=== PATIENT | male | born 1950 | race Caucasian/White ===

== ENCOUNTER 2023-10-01 14:40 | Outpatient (REF) | payer MEDICARE, SELFPAY | END 2023-10-01 14:41 | disposition home or self-care (01) | LOC: HO.SH 14:40 | PROVIDERS: Visit Provider Physician Assistant Medical | DX: Z01.118 Encounter for examination of ears and hearing with other abnormal findings (principal); H90.3 Sensorineural hearing loss, bilateral | CPT/HCPCS: 92557; 92567 ==

== ENCOUNTER 2024-05-26 13:20 | Outpatient (AMB) | payer MEDICARE, SELFPAY ==
--- NOTE | 2024-05-26 13:31 | MHC.PC.OV ---
Vital Signs 05/26/24 13:44 Height 5 ft 10 in Weight 166 lb BMI 23.8 BP 144/64 H Blood Pressure Location Lt brachial Position Sitting Respiration 12 Pulse 82 Pulse Source Pulse Oximeter Pulse Oximetry (%) 99 Oxygen Delivery Method Room Air Intake Visit Reasons: Establish Care not a transfer Intake Note: Patient is here to establish care with [facility], patient reports he has no concerns at this time. 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 Accompanied by: Self / Same As Patient Allergies No Known Allergies Allergy (Verified 05/29/24 14:19) Medication List - Last Reconciled 05/26/24 by Dona Manzano MD mecobalamin (vitamin B12) 5,000 mcg PO DAILY minocycline 50 mg PO .week Tobacco use date assessed: 05/26/24 Fall risk assessment: No Falls in past year Last assessed Fall Risk: 05/26/24 Dental Screening Dental Screen Date: 05/26/24 Did you have a dental problem in the last 6 months where you did not have access to dental care?: No Was dental information given to patient?: Patient has dentist HPI HPI Comments History of Present Illness Details The patient is a 74 year old male with a past medical history of diabetes, low b12, presenting to establish [facility]. transferring from [facility]. Recent labs concerning for elevation in Cr In April of 2024 serum creatinine gradually increased from a baseline of 1.0 up to 1.4 and subsequently to 1.94 as of May 02. Denies new meds. No OTC meds. Diabetes has been well controlled No flank pain, pelvic pain, dysuria ROS see HPI PHYSICAL EXAM: GENERAL: Alert and oriented x 3. NAD EYES: EOMI. Anicteric. HENT: Moist mucous membranes. No scleral icterus. LUNGS: Clear to auscultation bilaterally. CARDIOVASCULAR: Regular rate and rhythm. No murmur. No JVD. ABDOMEN: Soft, non-tender +bs, no cva tenderness EXTREMITIES: No edema. Non-tender. SKIN: No rashes or lesions. Warm. NEUROLOGIC: No focal neurological deficits. CN II-XII grossly intact PSYCHIATRIC: Cooperative. Appropriate mood and affect [facility] Medical History No pertinent past medical history Surgical History No pertinent past surgical history Family History Other Lung cancer Social History Household Members: Spouse, Family and Children Housing: House Alcohol intake: current Alcohol intake frequency: holidays/special occasions only Alcohol type: beer Comment: like once per year Patient Tobacco Use Status: Never used Tobacco e-Cigarette/Vaping Use: Never Used Advance Directives: No Advance Directives Information Provided: Yes Do you have a plan to hurt others: No Plan service: No Current occupational status: retired Current occupational exposures/hazards: No Cognitive needs: No Hearing needs: No Vision needs: No Questionnaire PHQ-9 Over the last 2 weeks, how often have you been bothered by any of the following problems? 1. Little interest or pleasure in doing things: not at all 2. Feeling down, depressed, or hopeless: not at all 3. Trouble falling or staying asleep, or sleeping too much: not at all 4. Feeling tired or having little energy: not at all 5. Poor appetite or overeating: not at all 6. Feeling bad about yourself - or that you are a failure or have let yourself or your family down: not at all 7. Trouble concentrating on things, such as reading the newspaper or watching television: not at all 8. Moving or speaking so slowly that other people could have noticed. Or the opposite - being so fidgety or restless that you have been moving around a lot more than usual: not at all 9. Thoughts that you would be better off or of hurting yourself in some way: not at all Total score: 0 Depression Screening Interpretation: Negative Depression Screening Done: Yes 22636 - PHQ-9 Billing: Yes Source: Developed by Drs. Romel Blanco, Violeta Frankel, Chandler Lin and colleagues, with an educational lashaun from [employer] (formerly [employer]). Thrive Questionnaire Date Thrive assessed: 05/26/24 I am a: Patient What is your living situation today?: I have a steady place to live Within the past 12 months, did the food you bought not last and you didn't have the money to get more?: Never true Within the past 12 months, did you worry whether your food would run out before you got money to buy more?: Never true Do you have trouble paying for medicines?: No Do you have trouble getting transportation to medical appointments?: No Do you have trouble paying your heating and electricity bill?: No Do you have trouble taking care of your child, family member or friend?: No Do you have trouble with day-to-day activities such as bathing, preparing meals, shopping, managing finances, etc.?: No Are you currently unemployed and looking for a job?: No Are you interested in more education?: No Please select the resources that you would like help with: None Currently or been in a relationship where the following occur: No concerns reported THRIVE Score: 0 AUDIT C Alcohol Use Questionnaire (AUDIT-C) 1. How often do you have a drink containing alcohol?: Never 3. How often do you have six or more drinks on one occasion?: Never Total Score: 0 REMIGIO-7 AMB Questionnaire REMIGIO-7 Date REMIGIO - 7 assessed: 05/26/24 Feeling nervous, anxious, or on edge: 0 = Not at all Not being able to stop or control worryin = Not at all Worrying too much about different things: 0 = Not at all Trouble relaxin = Not at all Being so restless that it is hard to sit still: 0 = Not at all Becoming easily annoyed or irritable: 0 = Not at all Feeling afraid as if something awful might happen: 0 = Not at all Total REMIGIO-7 score (0-4 normal; 5-9 mild; 10-14 moderate; 15-21 severe): 0 Source: Developed by Drs. Romel Blanco, Violeta Frankel, Chandler Lin and colleagues, with an educational lashaun from [employer] (formerly [employer]). REMIGIO-7 Assessment Billing REMIGIO-7 Assessment Tool: REMIGIO-7 Assessment 06665 Physical exam (Primary Care) Vital Signs: Last Vital Signs Pulse 82 05/26/24 13:44 Resp 12 05/26/24 13:44 BP 144/64 H 05/26/24 13:44 Pulse Ox 99 05/26/24 13:44 Oxygen Delivery Method Room Air 05/26/24 13:44 BMI result Body Mass Index 23.8 Tobacco/Smoking Status: Tobacco use Status Tobacco use date assessed 05/26/24 05/26/24 13:58 Patient Tobacco Use Status Never used Tobacco 05/26/24 13:58 e-Cigarette/Vaping Use Never Used 05/26/24 13:58 PHQ-9: PHQ-9 Score PHQ-9: Total score 0 06/01/24 08:42 Depression Screening Interpretation: Negative Thrive Assessment: Date of Thrive Assessment Date Thrive assessed 05/26/24 05/26/24 13:58 Currently or been in a relationship where the following occur: No concerns reported Assessment and Plan Assessment & Plan (1) MYRON (acute kidney injury): Code(s): N17.9 - Acute kidney failure, unspecified Plan: Urgent referral to nephrology. Travelling soon for extended amount of time. Recheck labs, urine (2) Type 2 diabetes mellitus: Code(s): E11.9 - Type 2 diabetes mellitus without complications Qualifiers: Diabetes mellitus complication status: with other specified complication Diabetes mellitus terminal clerk insulin use: without terminal clerk use Qualified Code(s): E11.69 - Type 2 diabetes mellitus with other specified complication (3) Screening for prostate cancer: Code(s): Z12.5 - Encounter for screening for malignant neoplasm of prostate Orders: Orders Comprehensive Met. Panel 05/26/24 E11.9 - Type 2 diabetes mellitus without complications, N17.9 - Acute kidney failure, unspecified, Z12.5 - Encounter for screening for malignant neoplasm of prostate UA CC w/rflx Micro + Cult 05/26/24 E11.9 - Type 2 diabetes mellitus without complications, N17.9 - Acute kidney failure, unspecified, Z12.5 - Encounter for screening for malignant neoplasm of prostate Microalbumin, Random (w Creat) 05/26/24 E11.9 - Type 2 diabetes mellitus without complications, N17.9 - Acute kidney failure, unspecified, Z12.5 - Encounter for screening for malignant neoplasm of prostate Prostate Specific Antigen 05/26/24 Z12.5 - Encounter for screening for malignant neoplasm of prostate Referrals Nephrology Referral N17.9 - Acute kidney failure, unspecified Medications: New minocycline 50 mg PO .week PRN Coding Level of Care Code New Pt Level 4 (55604) Diagnoses MYRON (acute kidney injury) N17.9 Type 2 diabetes mellitus with other specified complication, without long-term current use of insulin E11.69 Diabetes mellitus complication status: with other specified complication Diabetes mellitus terminal clerk insulin use: without terminal clerk use Screening for prostate cancer Z12.5 Additional Codes REMIGIO-7 Assessment Billing - REMIGIO-7 Assessment Tool: REMIGIO-7 Assessment [id number] ([id number])
[2024-05-26 13:44] VITALS: BP 144/64; PULSE 82; RESP 12; O2SAT 99; BMI 23.8
== END 2024-05-26 14:29 | disposition home or self-care (01) ==
PROVIDERS: Visit Provider Internal Medicine
DX: N17.9 Acute kidney failure, unspecified (principal); E11.69 Type 2 diabetes mellitus with other specified complication; Z12.5 Encounter for screening for malignant neoplasm of prostate
CPT/HCPCS: 99204

== ENCOUNTER 2024-05-26 14:34 | Outpatient (REF) | payer MEDICARE, SELFPAY ==
[2024-05-26 17:42] LABS: Appearance Urine Clear; Color Urine Yellow; Glucose Urine UA Negative (Negative); Leukocyte Esterase Urine Negative (Negative); Nitrite Urine Negative (Negative); Urine Blood Negative (Negative); Urine Ketones Negative (Negative); Urine Protein Negative (Neg-Trace)
[2024-05-26 17:54] LABS: Alanine Aminotransferase 11 U/L (0-40); Albumin Level 4.4 g/dL (3.5-5.0); Alkaline Phosphatase 73 U/L (39-117); Anion Gap 13 (12-20); Aspartate Amino Transferase 34 U/L (5-37); Bilirubin Total 0.9 mg/dL (0.0-1.0); Blood Urea Nitrogen 27 mg/dL (9-16); Calcium 9.8 mg/dL (8.4-10.2); Carbon Dioxide 26 mmol/L (22-29); Chloride 106 mmol/L (96-108); Estimated Glomerular Filt Rate 35; Glucose Random 92 mg/dL (60-115); Potassium 4.5 mmol/L (3.3-5.1); Sodium 140 mmol/L (135-145); Total Protein 7.6 g/dL (6.5-8.0)
[2024-05-26 18:13] LABS: Creatinine Urine 46.23 mg/dL; Microalbum/Creatinine Ratio Ur 21.6 ug/mg cr (<30)
== END 2024-05-26 14:35 | disposition home or self-care (01) ==
LOC: HO.WFDLDS 14:34
PROVIDERS: Visit Provider Internal Medicine
DX: N17.9 Acute kidney failure, unspecified (principal); E11.9 Type 2 diabetes mellitus without complications; Z12.5 Encounter for screening for malignant neoplasm of prostate
CPT/HCPCS: 36415; 80053; 81003; 82043; 82570; 84153

== ENCOUNTER 2024-05-28 15:10 | Outpatient (REF) | payer MEDICARE, SELFPAY ==
[2024-05-28 18:13] LABS: Appearance Urine Clear; Color Urine Yellow; Glucose Urine UA Negative (Negative); Leukocyte Esterase Urine Negative (Negative); Nitrite Urine Negative (Negative); Specific Gravity - Urine <= 1.005 (1.005-1.025); Urine Blood Negative (Negative); Urine Ketones Negative (Negative); Urine Protein Negative (Neg-Trace)
[2024-05-28 19:16] LABS: Creatinine Urine 43.18 mg/dL; Total Protein Urine Random < 7 mg/dL (<12)
[2024-05-29 10:18] LABS: Complement C3 102 mg/dL (82-185)
[2024-05-29 15:38] LABS: Neutrophil Cyto Ab Screen NEGATIVE (NEGATIVE)
[2024-05-30 20:44] LABS: Prot Elec - Albumin 4.4 g/dL (3.8-4.8); Prot Elec - Alpha1 0.3 g/dL (0.2-0.3); Prot Elec - Alpha2 0.7 g/dL (0.5-0.9); Prot Elec - Beta 1 0.4 g/dL (0.4-0.6); Prot Elec - Beta 2 0.4 g/dL (0.2-0.5); Prot Elec - Gamma 1.2 g/dL (0.8-1.7); Prot Elec - Total Protein 7.3 g/dL (6.1-8.1)
== END 2024-05-28 15:11 | disposition home or self-care (01) ==
LOC: HO.LAB 15:10
PROVIDERS: PCP Internal Medicine; Referring Provider Internal Medicine; Visit Provider Internal Medicine Hypertension Specialist
DX: N17.9 Acute kidney failure, unspecified (principal)
CPT/HCPCS: 36415; 81003; 82570; 84156; 84165; 86036; 86160; 99202

== ENCOUNTER 2024-05-28 15:10 | Outpatient (AMB) | payer MEDICARE, SELFPAY ==
[2024-05-28 15:25] VITALS: BP 140/72; PULSE 60; O2SAT 99; BMI 23.7
--- NOTE | 2024-05-28 15:25 | HO.NEPHOV ---
Vital Signs 05/28/24 15:25 Height 5 ft 10 in Weight 165 lb BMI 23.7 BP 140/72 H Blood Pressure Location Lt brachial Position Sitting Pulse 60 Pulse Source Pulse Oximeter Pulse Oximetry (%) 99 Oxygen Delivery Method Room Air Intake Visit Reasons: Acute Kidney Failure/ Conf Field Service Rep Required: No Accompanied by: Spouse Allergies No Known Allergies Allergy (Verified 05/28/24 15:27) Medication List - Last Reconciled 05/29/24 by Bassam Talamantes MD mecobalamin (vitamin B12) 5,000 mcg PO DAILY minocycline 50 mg PO .week PRN HPI Comments Details: . Yaquelin is a pleasant 74-year-old man who has been enjoying reasonably good health. He has not had any significant prescription medications other than minocycline once a week for almost 10 years. Recently vitamin B12 has been added. He has a routine blood work done and renal function has been relatively stable all along. In April of 2024 serum creatinine gradually increased from a baseline of 1.0 up to 1.4 and subsequently to 1.94 as of May 02. Urine studies were unremarkable. He has not been taking any new medications including NSAIDs. Denies any difficulty urination. No dysuria urgency increased frequency. No hematuria. No joint pain fever rash. No weight loss. No diarrhea constipation. No hemoptysis. No history of smoking. He is planned to go to [place] in the next few days until October 2024. [facility] Medical History (Updated 05/26/24 @ 14:24 by Dona Manzano MD) No pertinent past medical history Surgical History No pertinent past surgical history Family History Other Lung cancer Social History Household Members: Spouse, Family and Children Housing: House Alcohol intake: current Alcohol intake frequency: holidays/special occasions only Alcohol type: beer Comment: like once per year Patient Tobacco Use Status: Never used Tobacco e-Cigarette/Vaping Use: Never Used service: No Current occupational status: retired Current occupational exposures/hazards: No Cognitive needs: No Hearing needs: No Vision needs: No Physical Exam Vital Signs: Last Vital Signs Pulse 60 05/28/24 15:25 BP 140/72 H 05/28/24 15:25 Pulse Ox 99 05/28/24 15:25 Oxygen Delivery Method Room Air 05/28/24 15:25 BMI result Body Mass Index 23.7 Const General: comfortable; No acute distress Orientation/consciousness: patient oriented x3 Eyes General: appearance normal, both eyes and all related structures Visual Loza: normal visual loza by confrontation Neck Neck: Yes supple and Yes no JVD Resp Effort & Inspection: normal respiratory effort and respiratory effort not decreased Auscultation: rhonchi Cardio Palpation: no palpable S3 and no palpable S4 Heart sounds: no rubs GI Inspection: Yes normal to inspection Palpation (GI): Soft to palpation Percussion: Yes normal to percussion Auscultation: normal bowel sounds General: Yes no CVA tenderness Back/Spine/Pelvis Back: no CVA tenderness Skin General skin exam: no petechiae and no purpura Neuro General: patient oriented x3 and no focal motor deficits Extrem General: No clubbing and No edema Results Reviewed Nephrology Results: Sodium 140 mmol/L (135-145) 05/26/24 Potassium 4.5 mmol/L (3.3-5.1) 05/26/24 Chloride 106 mmol/L (96-108) 05/26/24 Carbon Dioxide 26 mmol/L (22-29) 05/26/24 BUN 27 mg/dL (9-16) H 05/26/24 Creatinine 1.90 mg/dL (0.5-1.4) H 05/26/24 Calcium 9.8 mg/dL (8.4-10.2) 05/26/24 Urine Protein Negative mg/dL (Neg-Trace) 05/28/24 Urine Creatinine 43.18 mg/dL 05/28/24 Assessment & Plan Assessment & Plan (1) MYRON (acute kidney injury): Code(s): N17.9 - Acute kidney failure, unspecified Category: Medical Plan 74-year-old man without any significant medical history has unexplained acute kidney injury. Baseline creatinine is around 1.0 mg/dL which has increased to 1.9 over the last 6-8 weeks. Urine sediments bland. No serum proteinuria or hematuria. Glomerular nephritis/interstitial disease seem less likely at this time. Obstructive uropathy should be ruled out. Clinically he has no signs or symptoms of uremia any fluid overload. I have initiated today extensive workup for MYRON workup as outlined below. I will try to get a renal ultrasonogram before his trip to [place] to make sure there is no ongoing obstruction. In the meantime we will continue overt nephrotoxic agents including NSAIDs Increase p.o. fluid intake to maintain adequate urine output. I have encouraged him to keep monitoring his urine output as well. Further workup will be based on the outcome of the baseline investigations. I will keep you updated. I also encouraged him to follow up with field representative/health education while he is in [place] and keep monitoring renal function closely. Orders: Orders Neutrophil Cytoplasma Ab 05/28/24 N17.9 - Acute kidney failure, unspecified Complement C3 05/28/24 N17.9 - Acute kidney failure, unspecified Protein Electrophoresis, Serum 05/28/24 N17.9 - Acute kidney failure, unspecified Creatinine Urine 05/28/24 N17.9 - Acute kidney failure, unspecified UA and rflx microscopic 05/28/24 N17.9 - Acute kidney failure, unspecified Complement C4 05/28/24 N17.9 - Acute kidney failure, unspecified Total Protein Urine Random 05/28/24 N17.9 - Acute kidney failure, unspecified US renal BI 05/28/24 N17.9 - Acute kidney failure, unspecified Coding Level of Care Code New Pt Level 5 (17346) Diagnoses MYRON (acute kidney injury) N17.9
== END 2024-05-28 15:52 | disposition home or self-care (01) ==
PROVIDERS: PCP Internal Medicine; Referring Provider Internal Medicine; Visit Provider Internal Medicine Hypertension Specialist
DX: N17.9 Acute kidney failure, unspecified (principal)
CPT/HCPCS: 99204

== ENCOUNTER 2024-05-29 13:18 | Outpatient (REF) | payer MEDICARE, SELFPAY ==
--- NOTE | ~2024-05-29 | US_ITS ---
EXAMINATION: US RETROPERITONEAL LIMITED (RENAL ONLY) CLINICAL INFORMATION: Acute kidney failure. COMPARISON: None available. TECHNIQUE: Sonographic imaging of kidneys is performed. FINDINGS: RIGHT KIDNEY: The kidney measures approximately 11.1 x 4.7 x 5.5 cm (SAG x AP x TRV). Normal cortical thickness and echotexture. Wovn-yn-lblzhuez hydronephrosis. No perinephric fluid collection. No evidence of renal stones. LEFT KIDNEY: The kidney measures approximately 11.1 x 5.8 x 6 cm (SAG x AP x TRV). The cortex appears to be mildly atrophied and has normal echotexture. Uluycooz-ay-uwjsik hydronephrosis. No perinephric fluid collection. ADDITIONAL FINDINGS: Urinary bladder is distended to approximately 1750 mL. The post void images show residual of approximately 1450 mL. The bladder wall is trabeculated. A stone layering along the posterior bladder wall measures 0.7 x 1.3 x 1.2 cm. The prominent prostate gland protrudes into the bladder base. US/US renal BI IMPRESSION: * Prostatomegaly. * Large postvoid bladder residual. Findings consistent with bladder outlet obstruction. * Associated bilateral hydronephrosis (left worse than right).
== END 2024-05-29 13:19 | disposition home or self-care (01) ==
LOC: HO.US 13:18
PROVIDERS: PCP Internal Medicine; Visit Provider Internal Medicine Hypertension Specialist
DX: N17.9 Acute kidney failure, unspecified (principal)
CPT/HCPCS: 76775

== ENCOUNTER 2024-05-29 14:05 | Emergency (ER) | payer MEDICARE, SELFPAY ==
--- NOTE | 2024-05-29 14:18 | ED_ITS ---
HPI - General Adult General Chief complaint: Urogenital-Male Stated complaint: large bladder volume Time Seen by Provider: 05/29/24 15:39 Source: patient and family Mode of arrival: ambulatory Limitations: no limitations History of Present Illness ED Provider: Dr. Burleson HPI narrative: Patient sent in from nephrology clinic for worsening renal function and urinary retention. Onset (ago): unknown Related Data Home Medications ?Medication ?Instructions ?Recorded ?Confirmed mecobalamin (vitamin B12) 5,000 5,000 mcg PO DAILY 05/26/24 05/29/24 mcg chewable tablet minocycline 50 mg capsule 50 mg PO .week PRN 05/28/24 05/29/24 Previous Rx's ?Medication ?Instructions ?Recorded tamsulosin 0.4 mg capsule (Flomax) 0.4 mg PO BEDTIME #30 caps 05/29/24 Allergies Allergy/AdvReac Type Severity Reaction Status Date / Time No Known Allergies Allergy Verified 05/29/24 14:19 Review of Systems 2 Review of Systems: Yes all other systems are reviewed and are negative Neurologic: Denies Sensory deficit (Neuro) [facility] Past Medical History Medical History No pertinent past medical history Surgical History No pertinent past surgical history Family History Family History Other Lung cancer Social History Social History Household Members: Spouse, Family and Children Housing: House Alcohol intake: current Alcohol intake frequency: holidays/special occasions only Alcohol type: beer Comment: like once per year Patient Tobacco Use Status: Never used Tobacco e-Cigarette/Vaping Use: Never Used Advance Directives: No Advance Directives Information Provided: Yes Do you have a plan to hurt others: No Plan service: No Current occupational status: retired Current occupational exposures/hazards: No Cognitive needs: No Hearing needs: No Vision needs: No Physical Exam ED Vital Signs: Vital Signs - 24 hr 05/29/24 14:19 05/29/24 15:51 Temperature 98.1 F Pulse Rate 69 81 Respiratory Rate 16 20 Blood Pressure 177/86 H 181/88 H Pulse Oximetry 98 99 Oxygen Delivery Method Room Air Room Air BMI result Body Mass Index 23.7 Const General: healthy appearing Nutritional Appearance: average body habitus Orientation/consciousness: oriented to person and patient oriented x3 Limitations: no limitations HENMT Head: Yes normal to inspection Ears: external ears normal General nose exam: Normal external nose present Mouth: Normal oral and palatal mucosa present and oropharynx normal Throat: Yes posterior oropharynx normal Eyes General: appearance normal, both eyes and all related structures Neck Neck: Yes normal visual inspection Chest Chest palpation & inspection: normal inspection of the chest Resp Auscultation: clear to auscultation bilaterally Cardio Jugular venous distension: no JVD Rate: regular rate Rhythm: regular rhythm Heart sounds: S1 normal heart sound present and S2 normal heart sound present GI Inspection: Yes normal to inspection Palpation (GI): Soft to palpation, nontender and No hepatosplenomegaly present Auscultation: normal bowel sounds General: Yes no CVA tenderness Back/Spine/Pelvis Back: no CVA tenderness Skin General skin exam: no rashes or lesions noted Neuro General: oriented to person and patient oriented x3 Cranial nerves: Yes CN's II-XII intact bilaterally Motor exam (neuro): 5/5 motor strength present throughout Sensory Exam: No Sensory deficit (Neuro) Extrem General: Yes normal to inspection Psych Appearance: grossly normal Course Course Course Narrative: This is a rapid medical exam performed by Mariella Larsen NP: Additional HPI, ROS, PE not included below will be deferred to primary provider. Patient is a 74-year-old male with T2DM presenting to the ED with urinary retention. Has been seeing Dr. Talamantes and had a renal U/S today. Was told to empty his bladder prior to exam and then bladder noted to be full. U/S tech contacted Dr. Talamantes who advised patient to come to the ED. Patient is traveling outside the country soon. He denies any abdominal pain. Plan: UA, labs Reevaluation(s) Reevaluation #1: Pool placed 1500cc removed Time: 16:16 Medical Decision Making Differential Diagnosis Differential Diagnoses: The differential diagnosis associated with the presentation includes (renal failure, urinary retention) Lab Data MDM Lab Attestation statement: I reviewed the patient's lab results. 05/29/24 14:38 05/29/24 14:38 Labs: Lab Results 07/25/24 Range/Units 14:38 WBC 7.0 (4.8-10.8) X10*3/uL RBC 4.01 L (4.60-5.80) X10*6/uL Hgb 12.5 L (14.0-18.0) g/dl Hct 37.3 L (42.0-52.0) % MCV 93.0 (80.0-98.0) fL MCH 31.2 (27.0-33.0) pg MCHC 33.5 (31.0-36.0) g/dl RDW 13.1 (11.0-16.0) % Plt Count 157 L (160-400) X10*3/uL MPV 10.8 (9.4-12.4) fL Immature Gran % (Auto) 0.3 (0.0-0.4) % Neut % (Auto) 60.2 (45-73) % Lymph % (Auto) 30.4 (20-40) % [place] % (Auto) 7.8 (2-11) % Eos % (Auto) 1.0 (0-4) % Baso % (Auto) 0.3 (0-2) % Lymph # (Auto) 2.1 (1.2-4.9) X10*3/uL [place] # (Auto) 0.6 (0.1-1.2) X10*3/uL Eos # (Auto) 0.1 (0.0-0.4) X10*3/uL Baso # (Auto) 0.0 (0.0-0.2) X10*3/uL Abs Immat Gran (auto) 0.02 (0.00-0.03) X10*3/uL Absolute Neuts (auto) 4.2 (2.0-8.3) x10*3/uL Absolute Nucleated RBC 0.000 (0.0-0.012) X10*3/uL Nucleated RBC % (auto) 0.0 (0.0-0.2) /100WBC Sodium 140 (135-145) mmol/L Potassium 4.7 (3.3-5.1) mmol/L Chloride 104 (96-108) mmol/L Carbon Dioxide 27 (22-29) mmol/L Anion Gap 14 (12-20) BUN 28 H (9-16) mg/dL Creatinine 2.06 H (0.5-1.4) mg/dL Estim Creat Clear Calc 31.4 Estimated GFR 32 Random Glucose 90 (60-115) mg/dL Calcium 10.0 (8.4-10.2) mg/dL Total Bilirubin 0.9 (0.0-1.0) mg/dL AST 29 (5-37) U/L ALT 10 (0-40) U/L Alkaline Phosphatase 73 (39-117) U/L Total Protein 7.8 (6.5-8.0) g/dL Albumin 4.6 (3.5-5.0) g/dL Urine Color Yellow Urine Appearance Clear Urine pH 5.5 (5.0-9.0) Ur Specific [place] 1.010 (1.005-1.025) Urine Protein Negative (Neg-Trace) mg/dL Urine Glucose (UA) Negative (Negative) mg/dL Urine Ketones Negative (Negative) mg/dL Urine Blood Negative (Negative) Urine Nitrite Negative (Negative) Ur Leukocyte Esterase Negative (Negative) Independent Interpretation I performed an independent interpretation of an: Ultrasound (bed side bladder scan showed 1500cc) Independent Historian Clinical information obtained from an independent historian. History obtained from or confirmed by: Spouse External Record Review External record reviewed: Outpatient record and Prior outpatient labs Prescription Management I considered prescription management with: Antibiotic (no evidence of UTI) Discharge Plan Discharge Clinical Impression: Acute retention of urine, MYRON (acute kidney injury) Patient Disposition: Home, Self-Care Instructions: Urinary Retention in Men (ED), Pool Catheter Placement and Care (ED) Prescriptions: New tamsulosin [Flomax] 0.4 mg capsule 0.4 mg PO BEDTIME Qty: 30 0RF No Action mecobalamin (vitamin B12) 5,000 mcg tablet,chewable 5,000 mcg PO DAILY minocycline 50 mg capsule 50 mg PO .week PRN Referrals: Francisco Roberts MD [Physician] - 1 week Print Language: Bulgarian
[2024-05-29 14:19] VITALS: BP 177/86; PULSE 69; RESP 16; TEMP 36.7; O2SAT 98; BMI 23.7
--- OUTSIDE RECORDS SUMMARY | 2024-05-29 14:35 | XMS_ITS | Continuity of Care Document ---
Author Organization [facility] Address [address] [place] [address]- Care Team Providers Care Sand Buffer Name Role Phone Gian Rahman MD Primary Care Physician Encounter [facility] Date(s): 07/25/23 - 08/24/[address] [address]- Attending Physician: Ramez Pickett Admitting Physician: Ramez Pickett Referring Physician: AdmtrRamez Allergies, Adverse Reactions, Alerts No Known Allergies Medications ibuprofen 800 mg oral tablet 1 tablet = 800 mg, By Mouth, 3 times a day, PRN as needed for pain, 0 Refills, Maintenance Start Date: 02/01/12 Status: Ordered Problem List Condition Confirmation Course Effective Dates Status H ealth Status Informant Lumbar radiculopathy Confirmed Active Patient Care team information Care Team Personnel Name: Gian Rahman MD Position: S Physician (General Medicine) Member Role: PCP Address: Address: [address] [place] [id number]- Care Team Related Persons Name: GONZALO ARI Address: home [address] [place] [address]
--- OUTSIDE RECORDS SUMMARY | 2024-05-29 14:35 | XMS_ITS | Continuity of Care Document ---
Author Organization [facility] Address [address] [place] [address]- Care Team Providers Care Transfer Station Attendant Name Role Phone Gian Rahman MD Primary Care Physician Encounter [facility] Date(s): 07/19/23 - 08/24/[address] [address]- [place] Attending Physician: Bong Rodriguez MD Admitting Physician: Bong Rodriguez MD Referring Physician: Bong Rodriguez MD Allergies, Adverse Reactions, Alerts No Known Allergies [...] Team Personnel Name: Gian Rahman MD Position: [facility] Physician (General Medicine) Member Role: PCP Address: Address: [address] [place] [id number] Care Team Related Persons Name: SRINIVASAGUMARO ARI Address: home [address] [place] [address]
--- OUTSIDE RECORDS SUMMARY | 2024-05-29 14:35 | XMS_ITS | Continuity of Care Document ---
Author Organization [facility] ter Address [address] [place] [id number]- Care Team Providers Care Outpatient Receptionist Name Role Phone Not on Staff, PCP Primary Care Physician Unavail able Encounter [facility] [place] Date(s): 03/17/21 - 03/18/[address] [address]- Encounter Diagnosis Foreign body sensation in throat(Final) - 03/18/21 Discharge Disposition: A-D/C Home Attending Physician: Sasha Santiago MD Admitting Physician: Sasha Santiago MD Referring Physician: Not on Staff, Referring MD Allergies, Adverse Reactions, Alerts Substance Reaction Severity Status NKA Active Medications ibuprofen 800 mg oral tablet 1 tablet = 800 mg, By Mouth, 3 times a day, PRN as needed for pain, 0 Refills, Maintenance Start Date: 02/01/12 Status: Ordered Problem List Condition Effective Dates Status Health Status Inform ant Lumbar radiculopathy(Confirmed) Active Results Radiology Reports * Exam Date Time Procedure Performing Provider Status 03/18/21 1:11 AM Neck Soft Tissue Lev Cooper; Auth (Verified) Notes: (Neck Soft Tissue) Reason For Exam: Sensation of foreign body in throat;Foreign Body RESULT: Neck Soft Tissue Neck Soft Tissue Hx of Present Illness: pt eating watermelon, piece caught in throat. Can swallow liquids, but stillfeel it there; Reason: Foreign Body; Sensation of foreign body in throat; Clinical Question(s): Foreign Body Location COMPARISON: None FINDINGS: No radiopaque foreign bodies. There is mild/moderate degenerative changes IMPRESSION: No foreign bodies or fracture. WSN: [id number] Ordering Physician: Eliceo Schwartz Dictated By: jJ Holt MD Dictated Date/Time: 03/18/21 7:54 am Reviewed By: Jj Holt MD Signed By: Jj Holt MD Signed Date/Time: 03/18/21 7:54 am Transcribed By: JOI Transcribed Date/Time: 03/18/21 7:53 am Vital Signs Most recent to oldest [Reference Range]: 1 2 3 Height 170 cm (03/17/21 11:29 PM) Oxygen Saturation [94-100 %] 99 % (03/18/21 1:35 AM) 100 % (03/17/21 11:29 PM) 100 % (03/17/21 11:16 PM) Pulse Rate [55-90 bpm] 71 bpm (03/18/21 1:35 AM) 75 bpm (03/17/21 11:29 PM) 79 bpm (03/17/21 11:16 PM) Blood Pressure [90-138/55-84 mm Hg] 139/74mm Hg *H* (03/18/21 1:35 AM) 144/77mm Hg *H* (03/17/21 11:29 PM) Respiratory Rate [16-30 br/min] 16 br/min (03/18/21 1:35 AM) 18 br/min (03/17/21 11:29 PM) Temperature [96.8-100.4 DegF] 97.9 DegF (03/18/21 1:35 AM) Mode of Delivery (Oxygen) Room air (03/18/21 1:35 AM) Room air (03/17/21 11:29 PM) Room air (03/17/21 11:16 PM) Temperature Route Oral (03/18/21 1:35 AM) Dry Weight 78 kg (03/17/21 11:29 PM)
[2024-05-29 14:45] LABS: Basophils Percent Auto 0.3 % (0-2); Eosinophils Absolute Auto 0.1 X10*3/uL (0.0-0.4); Hematocrit 37.3 % (42.0-52.0); Hemoglobin 12.5 g/dl (14.0-18.0); Imm Gran Abs Auto 0.02 X10*3/uL (0.00-0.03); Imm Gran Pct Auto 0.3 % (0.0-0.4); Lymphocytes Absolute Auto 2.1 X10*3/uL (1.2-4.9); Lymphocytes Percent Auto 30.4 % (20-40); MANUAL DIFF FLAG NO; Mean Corpuscular HGB Conc 33.5 g/dl (31.0-36.0); Mean Corpuscular Hemoglobin 31.2 pg (27.0-33.0); Mean Platelet Volume 10.8 fL (9.4-12.4); Monocytes Absolute Auto 0.6 X10*3/uL (0.1-1.2); Monocytes Percent Auto 7.8 % (2-11); Neutrophils Absolute Auto 4.2 x10*3/uL (2.0-8.3); Neutrophils Percent Auto 60.2 % (45-73); Platelet Count 157 X10*3/uL (160-400); Red Blood Count 4.01 X10*6/uL (4.60-5.80); Red Cell Distribution Width 13.1 % (11.0-16.0)
[2024-05-29 14:49] LABS: Appearance Urine Clear; Color Urine Yellow; Glucose Urine UA Negative (Negative); Leukocyte Esterase Urine Negative (Negative); Nitrite Urine Negative (Negative); PH 5.5 (5.0-9.0); Urine Blood Negative (Negative); Urine Ketones Negative (Negative); Urine Protein Negative (Neg-Trace)
[2024-05-29 15:00] LABS: Alanine Aminotransferase 10 U/L (0-40); Albumin Level 4.6 g/dL (3.5-5.0); Alkaline Phosphatase 73 U/L (39-117); Anion Gap 14 (12-20); Aspartate Amino Transferase 29 U/L (5-37); Bilirubin Total 0.9 mg/dL (0.0-1.0); Blood Urea Nitrogen 28 mg/dL (9-16); Carbon Dioxide 27 mmol/L (22-29); Chloride 104 mmol/L (96-108); Creatinine Clr Calc Pharmacy 31.4; Estimated Glomerular Filt Rate 32; Glucose Random 90 mg/dL (60-115); Potassium 4.7 mmol/L (3.3-5.1); Sodium 140 mmol/L (135-145); Total Protein 7.8 g/dL (6.5-8.0)
[2024-05-29 15:51] VITALS: BP 181/88; PULSE 81; RESP 20; O2SAT 99
[2024-05-29 17:05] VITALS: BP 181/88; PULSE 81; RESP 20; TEMP 36.6; O2SAT 99
== END 2024-05-29 17:05 | disposition home or self-care (01) ==
PROVIDERS: Registered Nurse Emergency; Emergency Provider Emergency Medicine; PCP Internal Medicine
DX: R33.9 Retention of urine, unspecified (principal); N17.9 Acute kidney failure, unspecified; Z79.899 Other long term (current) drug therapy
CPT/HCPCS: 36415; 51798; 76775; 80053; 81003; 85025; 99283; 99284

== ENCOUNTER 2024-07-01 10:13 | Outpatient (AMB) | payer MEDICARE, SELFPAY ==
[2024-07-01 10:50] VITALS: BP 118/60; PULSE 97; O2SAT 98; BMI 21.8
--- NOTE | 2024-07-01 10:50 | HO.NEPHOV_ITS ---
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 Yaquelin is a pleasant 74-year-old man who has been enjoying reasonably good health. He has not had any significant prescription medications other than minocycline once a week for almost 10 years. Recently vitamin B12 has been added. He has a routine blood work done and renal function has been relatively stable all along. In April of 2024 serum creatinine gradually increased from a baseline of 1.0 up to 1.4 and subsequently to 1.94 as of May 02. Urine studies were unremarkable. He has not been taking any new medications including NSAIDs. Denies any difficulty urination. No dysuria urgency increased frequency. No hematuria. No joint pain fever rash. No weight loss. No diarrhea constipation. No hemoptysis. No history of smoking. He is planned to go to [place] in the next few days until October 2024. 07/01/2024. 74-year-old man with acute kidney injury due to obstructive uropathy he had bilateral hydronephrosis. Seen by Urology and underwent urologic procedure He has a Pool catheter in place he has difficulty emptying his bladder and waiting for urodynamic studies [facility] Medical History (Updated 06/02/24 @ 16:58 by Dona Manzano MD) No pertinent past medical history Surgical History (Updated 07/01/24 @ 10:53 by TRINITY Buchanan) History of prostate surgery (~06/2024) No pertinent past surgical history Family History Other Lung cancer Social History Household Members: Spouse, Family and Children Housing: House Alcohol intake: current Alcohol intake frequency: holidays/special occasions only Alcohol type: beer Comment: like once per year Patient Tobacco Use Status: Never used Tobacco e-Cigarette/Vaping Use: Never Used service: No Current occupational status: retired Current occupational exposures/hazards: No Cognitive needs: No Hearing needs: No Vision needs: No Physical Exam Vital Signs: Last Vital Signs Pulse 97 07/01/24 10:50 BP 118/60 07/01/24 10:50 Pulse Ox 98 07/01/24 10:50 Oxygen Delivery Method Room Air 07/01/24 10:50 BMI result Body Mass Index 21.8 Const General: comfortable; No acute distress Orientation/consciousness: patient oriented x3 Eyes General: appearance normal, both eyes and all related structures Visual Loza: normal visual loza by confrontation Neck Neck: Yes supple and Yes no JVD Resp Effort & Inspection: normal respiratory effort and respiratory effort not decreased Auscultation: rhonchi Cardio Palpation: no palpable S3 and no palpable S4 Heart sounds: no rubs GI Inspection: Yes normal to inspection Palpation (GI): Soft to palpation Percussion: Yes normal to percussion Auscultation: normal bowel sounds General: Yes no CVA tenderness Back/Spine/Pelvis Back: no CVA tenderness Skin General skin exam: no petechiae and no purpura Neuro General: patient oriented x3 and no focal motor deficits Extrem General: No clubbing and No edema Results Reviewed Nephrology Results: Hgb 12.5 g/dl (14.0-18.0) L 05/29/24 WBC 7.0 X10*3/uL (4.8-10.8) 05/29/24 Plt Count 157 X10*3/uL (160-400) L 05/29/24 Sodium 140 mmol/L (135-145) 05/29/24 Potassium 4.7 mmol/L (3.3-5.1) 05/29/24 Chloride 104 mmol/L (96-108) 05/29/24 Carbon Dioxide 27 mmol/L (22-29) 05/29/24 BUN 28 mg/dL (9-16) H 05/29/24 Creatinine 2.06 mg/dL (0.5-1.4) H 05/29/24 Calcium 10.0 mg/dL (8.4-10.2) 05/29/24 Urine Protein Negative mg/dL (Neg-Trace) 05/29/24 Urine Creatinine 43.18 mg/dL 05/28/24 Renal US 05/29/24 Assessment & Plan Assessment & Plan (1) MYRON (acute kidney injury): Code(s): N17.9 - Acute kidney failure, unspecified Category: Medical Plan 74-year-old man with acute kidney injury due to obstructive uropathy. Ultrasonogram revealed bilateral hydronephrosis. Status post urologic procedure and currently has a Pool catheter in place. Recent creatinine was 1.7 renal function is improving. He is waiting for urodynamic studies. In the meantime encouraged him to stay on a low-sodium diet increase fluid intake. All the serological testing have been negative thus far. His blood pressure is acceptable. No changes were made to his medications. Orders: Orders Hemoglobin A1c Today N17.9 - Acute kidney failure, unspecified Comprehensive Met. Panel Today N17.9 - Acute kidney failure, unspecified Complete Blood Count Auto Diff Today N17.9 - Acute kidney failure, unspecified Coding Level of Care Code Est Pt Level 4 (99931) Diagnoses MYRON (acute kidney injury) N17.9
== END 2024-07-01 11:16 | disposition home or self-care (01) ==
PROVIDERS: PCP Internal Medicine; Visit Provider Internal Medicine Hypertension Specialist
DX: N17.9 Acute kidney failure, unspecified (principal)
CPT/HCPCS: 99214

== ENCOUNTER → 2024-07-01 10:13 | Outpatient (BNVA) | payer MEDICARE, SELFPAY | PROVIDERS: PCP Internal Medicine; Visit Provider Internal Medicine Hypertension Specialist | DX: Z13.89 Encounter for screening for other disorder (principal) | CPT/HCPCS: 99212 ==

== ENCOUNTER 2024-07-01 11:19 | Outpatient (REF) | payer MEDICARE, SELFPAY ==
[2024-07-01 12:04] LABS: MANUAL DIFF FLAG NO
[2024-07-01 12:05] LABS: Basophils Percent Auto 0.3 % (0-2); Eosinophils Absolute Auto 0.1 X10*3/uL (0.0-0.4); Eosinophils Percent Auto 0.9 % (0-4); Hematocrit 34.5 % (42.0-52.0); Hemoglobin 11.6 g/dl (14.0-18.0); Imm Gran Abs Auto 0.02 X10*3/uL (0.00-0.03); Imm Gran Pct Auto 0.3 % (0.0-0.4); Lymphocytes Absolute Auto 1.6 X10*3/uL (1.2-4.9); Lymphocytes Percent Auto 25.5 % (20-40); Mean Corpuscular HGB Conc 33.6 g/dl (31.0-36.0); Mean Corpuscular Volume 92.2 fL (80.0-98.0); Mean Platelet Volume 10.4 fL (9.4-12.4); Monocytes Absolute Auto 0.4 X10*3/uL (0.1-1.2); Monocytes Percent Auto 6.9 % (2-11); Neutrophils Absolute Auto 4.2 x10*3/uL (2.0-8.3); Neutrophils Percent Auto 66.1 % (45-73); Platelet Count 201 X10*3/uL (160-400); Red Blood Count 3.74 X10*6/uL (4.60-5.80); Red Cell Distribution Width 13.4 % (11.0-16.0); White Blood Count 6.4 X10*3/uL (4.8-10.8)
[2024-07-01 12:14] LABS: Estimated Average Glucose 111 mg/dL; Hemoglobin A1c % 5.5 % (<6.0)
[2024-07-01 12:18] LABS: Alanine Aminotransferase 12 U/L (0-40); Albumin Level 4.2 g/dL (3.5-5.0); Alkaline Phosphatase 83 U/L (39-117); Anion Gap 14 (12-20); Aspartate Amino Transferase 28 U/L (5-37); Bilirubin Total 0.8 mg/dL (0.0-1.0); Blood Urea Nitrogen 13 mg/dL (9-16); Calcium 9.9 mg/dL (8.4-10.2); Carbon Dioxide 26 mmol/L (22-29); Chloride 103 mmol/L (96-108); Estimated Glomerular Filt Rate 47; Glucose Random 109 mg/dL (60-115); Potassium 4.6 mmol/L (3.3-5.1); Sodium 138 mmol/L (135-145); Total Protein 7.4 g/dL (6.5-8.0)
== END 2024-07-01 11:20 | disposition home or self-care (01) ==
LOC: HO.10HDL 11:19
PROVIDERS: Visit Provider Internal Medicine Hypertension Specialist
DX: Z13.1 Encounter for screening for diabetes mellitus (principal); N17.9 Acute kidney failure, unspecified
CPT/HCPCS: 36415; 80053; 83036; 85025; 99212

== ENCOUNTER 2024-07-24 09:17 | Outpatient (REF) | payer MEDICARE, SELFPAY ==
[2024-07-24 09:28] LABS: MANUAL DIFF FLAG NO
[2024-07-24 10:12] LABS: Basophils Percent Auto 0.3 % (0-2); Eosinophils Absolute Auto 0.2 X10*3/uL (0.0-0.4); Eosinophils Percent Auto 2.4 % (0-4); Hemoglobin 12.5 g/dl (14.0-18.0); Imm Gran Abs Auto 0.02 X10*3/uL (0.00-0.03); Imm Gran Pct Auto 0.3 % (0.0-0.4); Lymphocytes Absolute Auto 2.3 X10*3/uL (1.2-4.9); Lymphocytes Percent Auto 33.2 % (20-40); Mean Corpuscular HGB Conc 32.9 g/dl (31.0-36.0); Mean Corpuscular Hemoglobin 30.6 pg (27.0-33.0); Mean Corpuscular Volume 93.1 fL (80.0-98.0); Mean Platelet Volume 10.7 fL (9.4-12.4); Monocytes Absolute Auto 0.5 X10*3/uL (0.1-1.2); Monocytes Percent Auto 7.2 % (2-11); Neutrophils Absolute Auto 3.9 x10*3/uL (2.0-8.3); Neutrophils Percent Auto 56.6 % (45-73); Platelet Count 172 X10*3/uL (160-400); Red Blood Count 4.08 X10*6/uL (4.60-5.80); Red Cell Distribution Width 13.2 % (11.0-16.0)
[2024-07-24 11:07] LABS: Anion Gap 8 (12-20); Blood Urea Nitrogen 15 mg/dL (9-16); Calcium 9.5 mg/dL (8.4-10.2); Carbon Dioxide 30 mmol/L (22-29); Chloride 108 mmol/L (96-108); Estimated Glomerular Filt Rate 56; Glucose Random 107 mg/dL (60-115); Iron 94 mcg/dL (45-160); Percent Iron Saturation 42 % (15-50); Potassium 4.3 mmol/L (3.3-5.1); Sodium 142 mmol/L (135-145); Total Iron Binding Capacity 226 mcg/dL (228-428); Unsaturated Iron Binding 132 ug/dL
[2024-07-24 11:08] LABS: TSH reflex Free T4 3.12 uIU/mL (0.32-4.0)
[2024-07-24 11:29] LABS: Folate 11.7 ng/mL (> or = 4.0); Vitamin B12 > 2000 pg/mL (200-900)
== END 2024-07-24 09:18 | disposition home or self-care (01) ==
LOC: HO.LAB 09:17
PROVIDERS: PCP Internal Medicine; Visit Provider Internal Medicine
DX: N17.9 Acute kidney failure, unspecified (principal); D53.9 Nutritional anemia, unspecified
CPT/HCPCS: 36415; 80048; 82607; 82746; 83540; 84443; 85025

== ENCOUNTER 2024-08-28 14:48 | Outpatient (REF) | payer MEDICARE, SELFPAY ==
[2024-08-28 16:57] LABS: Anion Gap 11 (12-20); Blood Urea Nitrogen 22 mg/dL (9-16); Calcium 9.5 mg/dL (8.4-10.2); Carbon Dioxide 27 mmol/L (22-29); Chloride 105 mmol/L (96-108); Estimated Glomerular Filt Rate 46; Glucose Random 96 mg/dL (60-115); Potassium 4.2 mmol/L (3.3-5.1); Sodium 139 mmol/L (135-145)
== END 2024-08-28 14:49 | disposition home or self-care (01) ==
LOC: HO.LAB 14:48
PROVIDERS: PCP Internal Medicine; Visit Provider Internal Medicine Hypertension Specialist
DX: N17.9 Acute kidney failure, unspecified (principal)
CPT/HCPCS: 36415; 80048; 99212

== ENCOUNTER 2024-08-28 14:48 | Outpatient (AMB) | payer MEDICARE, SELFPAY ==
[2024-08-28 15:07] VITALS: BP 132/66; PULSE 76; O2SAT 99; BMI 23.1
--- NOTE | 2024-08-28 15:07 | HO.NEPHOV ---
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 Yaquelin is a pleasant 74-year-old man who has been enjoying reasonably good health. He has not had any significant prescription medications other than minocycline once a week for almost 10 years. Recently vitamin B12 has been added. He has a routine blood work done and renal function has been relatively stable all along. In April of 2024 serum creatinine gradually increased from a baseline of 1.0 up to 1.4 and subsequently to 1.94 as of May 02. Urine studies were unremarkable. He has not been taking any new medications including NSAIDs. Denies any difficulty urination. No dysuria urgency increased frequency. No hematuria. No joint pain fever rash. No weight loss. No diarrhea constipation. No hemoptysis. No history of smoking. He is planned to go to [place] in the next few days until October 2024. 07/01/2024. 74-year-old man with acute kidney injury due to obstructive uropathy he had bilateral hydronephrosis. Seen by Urology and underwent urologic procedure He has a Pool catheter in place he has difficulty emptying his bladder and waiting for urodynamic studies 08/28/24 s/p proceedure Pool is out [facility] Medical History (Updated 07/16/24 @ 14:10 by Dona Manzano MD) No pertinent past medical history Surgical History History of prostate surgery (~06/2024) No pertinent past surgical history Family History Other Lung cancer Social History Household Members: Spouse, Family and Children Housing: House 75 years or older and lives alone: No Alcohol intake: current Alcohol intake frequency: holidays/special occasions only Alcohol type: beer Comment: like once per year Patient Tobacco Use Status: Never used Tobacco e-Cigarette/Vaping Use: Never Used service: No Current occupational status: retired Current occupational exposures/hazards: No Cognitive needs: No Hearing needs: No Vision needs: No Physical Exam Vital Signs: BMI result Body Mass Index 23.1 Const General: comfortable; No acute distress Orientation/consciousness: patient oriented x3 Eyes General: appearance normal, both eyes and all related structures Visual Loza: normal visual loza by confrontation Neck Neck: Yes supple and Yes no JVD Resp Effort & Inspection: normal respiratory effort and respiratory effort not decreased Auscultation: rhonchi Cardio Palpation: no palpable S3 and no palpable S4 Heart sounds: no rubs GI Inspection: Yes normal to inspection Palpation (GI): Soft to palpation Percussion: Yes normal to percussion Auscultation: normal bowel sounds General: Yes no CVA tenderness Back/Spine/Pelvis Back: no CVA tenderness Skin General skin exam: no petechiae and no purpura Neuro General: patient oriented x3 and no focal motor deficits Extrem General: No clubbing and No edema Results Reviewed Nephrology Results: Hgb 12.5 g/dl (14.0-18.0) L 07/24/24 WBC 7.0 X10*3/uL (4.8-10.8) 07/24/24 Plt Count 172 X10*3/uL (160-400) 07/24/24 Sodium 142 mmol/L (135-145) 07/24/24 Potassium 4.3 mmol/L (3.3-5.1) 07/24/24 Chloride 108 mmol/L (96-108) 07/24/24 Carbon Dioxide 30 mmol/L (22-29) H 07/24/24 BUN 15 mg/dL (9-16) 07/24/24 Creatinine 1.25 mg/dL (0.5-1.4) 07/24/24 Calcium 9.5 mg/dL (8.4-10.2) 07/24/24 Urine Protein Negative mg/dL (Neg-Trace) 05/29/24 Urine Creatinine 43.18 mg/dL 05/28/24 Renal US 05/29/24 Assessment & Plan Assessment & Plan (1) MYRON (acute kidney injury): Code(s): N17.9 - Acute kidney failure, unspecified Category: Medical Plan 74-year-old man with acute kidney injury due to obstructive uropathy. Ultrasonogram revealed bilateral hydronephrosis. Status post urologic procedure and currently has a Pool catheter in place. Recent creatinine was 1.25 renal function is improving. encouraged him to stay on a low-sodium diet increase fluid intake. All the serological testing have been negative thus far. His blood pressure is acceptable. No changes were made to his medications. Orders: Orders Basic Metabolic Panel 6 Months N17.9 - Acute kidney failure, unspecified Basic Metabolic Panel Today N17.9 - Acute kidney failure, unspecified Coding Level of Care Code Est Pt Level 4 (87597) Diagnoses MYRON (acute kidney injury) N17.9
== END 2024-08-28 15:27 | disposition home or self-care (01) ==
PROVIDERS: PCP Internal Medicine; Visit Provider Internal Medicine Hypertension Specialist
DX: N17.9 Acute kidney failure, unspecified (principal); N13.2 Hydronephrosis with renal and ureteral calculous obstruction
CPT/HCPCS: 99214

== ENCOUNTER 2024-12-02 08:04 | Outpatient (AMB) | payer MEDICARE, SELFPAY ==
--- NOTE | 2024-12-02 08:06 | MHC.PC.OV ---
Vital Signs 12/02/24 08:14 12/02/24 08:34 Height 5 ft 10 in Weight 166 lb 2 oz BMI 23.8 BP 146/62 H 126/68 Blood Pressure Location Lt brachial Lt brachial Position Sitting Sitting Pulse 66 Pulse Source Pulse Oximeter Pulse Oximetry (%) 95 Oxygen Delivery Method Room Air Intake Visit Reasons: annual wellness visit Intake Note: Medical wellness visit Entry Analyst Required: No Allergies No Known Allergies Allergy (Verified 12/02/24 08:11) Tobacco use date assessed: 05/26/24 Fall risk assessment: No Falls in past year Last assessed Fall Risk: 12/02/24 Dental Screening Dental Screen Date: 05/26/24 HPI HPI Comments History of Present Illness Details The patient is a 74 year old male with a past medical history of prediabetes, low b12, enlarged prostate presenting for AWV BPH: Following with [facility]. Had two procedures. Daytime urination is okay, still having some difficulty at night. Prescribed but not taking tamsulosin, finasteride. Reports ongoing hoarseness since surgery Renal: Following with nephrology. Improved kidney funtion with improved in urination Follows with surgery for surveillance of abdominal hernia Colon cancer screening: remote colonoscopy. has been doing stool cards/cologuard Flu shot received Memory 01/05 Care team reviewed Medications reconciled. Independent ADLs ROS see HPI PHYSICAL EXAM: GENERAL: Alert and oriented x 3. NAD EYES: EOMI. Anicteric. HENT: Moist mucous membranes. No scleral icterus. LUNGS: Clear to auscultation bilaterally. CARDIOVASCULAR: Regular rate and rhythm. No murmur. No JVD. ABDOMEN: Soft, non-tender +bs, no cva tenderness EXTREMITIES: No edema. Non-tender. SKIN: No rashes or lesions. Warm. NEUROLOGIC: No focal neurological deficits. CN II-XII grossly intact PSYCHIATRIC: Cooperative. Appropriate mood and affect [facility] Medical History No pertinent past medical history Surgical History S/P TURP History of prostate surgery (~06/2024) No pertinent past surgical history Family History Other Lung cancer Social History Household Members: Spouse, Family and Children Housing: House Alcohol intake: current Alcohol intake frequency: holidays/special occasions only Alcohol type: beer Comment: like once per year Patient Tobacco Use Status: Never used Tobacco e-Cigarette/Vaping Use: Never Used service: No Current occupational status: retired Current occupational exposures/hazards: No Cognitive needs: No Hearing needs: No Vision needs: No Questionnaire Thrive Questionnaire Date Thrive assessed: 05/26/24 AUDIT C Alcohol Use Questionnaire (AUDIT-C) 3. How often do you have six or more drinks on one occasion?: Never Total Score: 0 REMIGIO-7 AMB Questionnaire REMIGIO-7 Date REMIGIO - 7 assessed: 05/26/24 Source: Developed by Drs. Romel Blanco, Violeta Frankel, Chandler Lin and colleagues, with an educational lashaun from [employer]. Physical exam (Primary Care) Vital Signs: Last Vital Signs Pulse 66 12/02/24 08:14 BP 126/68 12/02/24 08:34 Pulse Ox 95 12/02/24 08:14 Oxygen Delivery Method Room Air 12/02/24 08:14 BMI result Body Mass Index 23.8 Tobacco/Smoking Status: Tobacco use Status Tobacco use date assessed 05/26/24 12/02/24 08:10 Patient Tobacco Use Status Never used Tobacco 12/02/24 08:16 e-Cigarette/Vaping Use Never Used 12/02/24 08:16 Thrive Assessment: Date of Thrive Assessment Date Thrive assessed 05/26/24 12/02/24 08:10 Coding Level of Care Code Est Pt Level 4 (38484) Diagnoses Annual wellness visit Z00.00 Hoarseness R49.0 Urinary retention R33.9 Assessment & Plan Assessment & Plan (1) Annual wellness visit: Code(s): Z00.00 - Encounter for general adult medical examination without abnormal findings Category: Medical Plan: 74 year old male for MVW see HPI (2) Hoarseness: Code(s): R49.0 - Dysphonia Category: Medical Plan: Referral to ENT for evaluation (3) Urinary retention: Code(s): R33.9 - Retention of urine, unspecified Category: Medical Plan: continue follow up urology continue follow up with nephrology Orders: Orders Hemoglobin A1c Today D53.9 - Nutritional anemia, unspecified, R33.9 - Retention of urine, unspecified, R49.0 - Dysphonia, Z00.00 - Encounter for general adult medical examination without abnormal findings Complete Blood Count Auto Diff Today D53.9 - Nutritional anemia, unspecified, R33.9 - Retention of urine, unspecified, R49.0 - Dysphonia, Z00.00 - Encounter for general adult medical examination without abnormal findings Comprehensive Met. Panel Today D53.9 - Nutritional anemia, unspecified, R33.9 - Retention of urine, unspecified, R49.0 - Dysphonia, Z00.00 - Encounter for general adult medical examination without abnormal findings Lipid Panel Today D53.9 - Nutritional anemia, unspecified, R33.9 - Retention of urine, unspecified, R49.0 - Dysphonia, Z00.00 - Encounter for general adult medical examination without abnormal findings Vitamin B12 and Folate Today D53.9 - Nutritional anemia, unspecified, R33.9 - Retention of urine, unspecified, R49.0 - Dysphonia, Z00.00 - Encounter for general adult medical examination without abnormal findings Referrals Ear/Nose/Throat Referral R49.0 - Dysphonia Cologuard Test Z12.11 - Encounter for screening for malignant neoplasm of colon, Z12.12 - Encounter for screening for malignant neoplasm of rectum
--- OUTSIDE RECORDS SUMMARY | 2024-12-02 08:12 | XMS_ITS | Clinical Summary ---
Author Organization 175 [facility] Address 175 [place] [address] Phone Care Team Providers Care Handle Sander Operator Name Role Phone Bong Rodriguez MD Primary Care Provider Allergies No known active allergies Medications Medication Sig Dispensed Refills Start Date End Date Status cyanocobalamin, vitamin B-12, 5,000 mcg tablet,disintegrating Place 1 Tablet under the tongue daily. 05/05/2024 Active Active Problems Problem Noted Date Diagnosed Date Type 2 diabetes mellitus wit hout complication, without long-term current use of insulin 12/21/2023 Elevated blood pressure reading 12/20/2023 Non-recurrent unilateral ing uinal hernia without obstruction or gangrene 06/19/2023 Pure hypercholesterolemia 09/01/2016 Diverticulitis of colon without hemorrhage 07/08 Overview (08/22/2024): Colonopcopy 03/2006 Dr. Reyez Displacement of lumbar inter vertebral disc without myelopathy 10/16/2011 Radiculitis, lumbosacral 10/16/2011 Sciatica 10/10/2011 Overview (08/22/2024): MRI done at [facility] October 07, 2011 moderate size L4-5 disc extrusion compressing the left L5 nerve root There are minor degenerative changes to the spine Pain in joint, lower leg 12/27/2006 Rosacea 12/27/2006 Encounters Date Type Department Care Team Description 10/08/2024 8:45 AM EST Office Visit Bariatric Surgery [facility] [address] [facility] [address] [place] [address] Natalie Peacock MD Non-recurrent bilateral inguinal hernia without obstruction or gangrene (Primary Dx); Type 2 diabetes mellitus without complication, without long-term current use of insulin ([facility]) from Last 3 Months Immunizations Name Administration Dates Next Due Influenza trivalent, 0.5mL ( Fluad) 65yo and older 08/27/2023,09/19/2021,08/24/2020,11/16 Influenza trivalent, 0.5mL, preservative free (Fluarix; FluLaval; Fluzone) ages 6mo and older (Afluria) 3 years and older 09/10/2022,08/24/2016,09/15/2014,08/02 Pneumococcal conjugate 13 va lent (Prevnar 13, PCV13) 2mo and older 08/24/2016 Pneumococcal polysaccharide 23 valent (Pneumovax 23) 2yo and older 11/12/2013 Rabies Vaccine, For Intramus cular Injection Retired Code 01/07/2022,12/31/2021,12/27/2021,12/24 Td Tetanus diptheria (Tdvax) 7yo and older 02/03/2003,12/11/2001 Tdap Tetanus diptheria acell ular pertussis (Boostrix; Adacel) 7yo and older 05/01/2014,06/15/2008 Zoster Live 08/02/2010 Zoster recombinant (Shingrix ) 19yo and older 03/15/2023,11/16/2022 Surgical History Surgery Date Site/Laterality Comments VASECTOMY PROCEDURE: ME VASECTOMY UNI/BI SPX W/POSTOP SEMEN EXAMS COLONOSCOPY PROCEDURE: HISTORICAL COLONOSCOPY; COMMENT: 2007 per patient TURP / TRANSURETHRAL INCISIO N / DRAINAGE PROSTATE 06/10/2024 PROCEDURE: HISTORICAL TURP; COMMENT: Enlarged prostate Medical History Medical History Date Comments Pain in joint, lower leg 12/27/2006 DX:Pain in joint, lower leg Rosacea 12/27/2006 DX:Rosacea Type 2 diabetes mellitus wit hout complication, without long-term current use of insulin ([facility]) 12/21/2023 DX:Type 2 diabetes me llitus without complication, without long-term current use of insulin ([facility]) Family History Medical History Relation Name Comments Lung cancer Brother 1 smoker No Known Problems Brother 2 No Known Problems Brother 3 Other: epilepsy Brother 4 Other: DVT Brother 5 Other: hepatitis c Father No Known Problems Maternal Grandfather No Known Problems Mother No Known Problems Paternal Grandfather No Known Problems Paternal Grandmother No Known Problems Sister No Known Problems Son 1 No Known Problems Son 2 Blindness Neg Hx Cataracts Neg Hx Coronary artery disease Neg Hx Glaucoma Neg Hx Macular degeneration Neg Hx Strabismus Neg Hx Relation Name Status Comments Brother 1 Brother 2 Alive Brother 3 Alive Brother 4 Alive Brother 5 Alive Father (Age 82) Maternal Grandfather Maternal Grandmother Mother (Age 63) Paternal Grandfather Paternal Grandmother Sister (Age 2) Son 1 Alive Son 2 Alive Social History Tobacco Use Types Packs/Day Years Used Date Smoking Tobacco: Former Smokeless Tobacco: Never Alcohol Use Standard Drinks/Week Comments Yes 0 (1 standard drink = 0.6 oz pur e alcohol) Sex and Gender Information Value Date Recorded Sex Assigned at Not on file Gender Identity Not on file Sexual Orientation Not on file Job Start Date Occupation Industry Not on file Not on file Not on file Obstetrics History Last Filed Vital Signs Vital Sign Reading Time Taken Comments Blood Pressure 136/71 10/08/2024 8:38 AM EST Pulse 69 10/08/2024 8:38 AM EST Temperature 36.9 ??C (98.4 ??F) 10/08/2024 8:38 AM ES T Respiratory Rate - - Oxygen Saturation - - Inhaled Oxygen Concentration - - Weight 73.5 kg (162 lb) 10/08/2024 8:38 AM EST Height 172.7 cm (5' 8 ) 10/08/2024 8:38 AM EST Body Mass Index 24.63 10/08/2024 8:38 AM EST Plan of Treatment Upcoming Encounters Date Type Department Care Team (Late st Contact Info) Description 04/06/2025 8:30 AM EDT Office Visit Bariatric Surgery - [place] 175 [facility] [address] [place] [address] Natalie Peacock MD [address] [facility] [address] [place] [address] Health Maintenance Due Date Last Done Comments Diabetes: Annual Retina Eye Exam 02/27/1960 Depression Screening 10/14/2022 Falls Risk Assessment 10/14/2022 Medicare Annual Wellness Visit 10/14/2022 Social Influencers of Health Screening 10/14/2022 RSV Immunization Patients 60+ Years Old (1 - 1-dose 75+ series) 02/27/2023 DTaP,Tdap,and Td Vaccines (5 - Td or Tdap) 05/01/2024 05/01/2014, 06/15/2008, 02/03/2003, Additional history exists COVID-19 Vaccine ( - 2023- season) 2024 09/27/2022, 08/23/2021, 02/08/2021, Additional history exists Influenza Vaccine (#1) 2024 , 09/10/2022, 09/19/2021, Additional history exists Diabetes: Blood Sugar Control Test (HGBA1C) 10/14/2024 04/14/2024, 04/14/2024 Diabetes: Annual Urine Albumin-Creatinine Ratio (uACR) 04/14/2025 04/14/2024 Diabetes: Annual Foot Exam 04/14/2025 04/14/2024 Diabetes: Annual GFR (Glomerular Filtration Rate) 05/02/2025 05/02/2024, 05/02/2024, 04/14/2024 Cholesterol Screening (Lipid Panel) 04/14/2029 04/14/2024, 04/14/2024 Hepatitis C Screening Completed 02/17/2013 Pneumococcal Vaccine: 65+ Years Completed 08/24/2016, 11/12/2013 Zoster Vaccines Completed 03/15/2023, 11/05, 08/02/2010 HIB Vaccines Aged Out No longer eligi ble based on patient's age to complete this topic HPV Vaccines Aged Out No longer eligi ble based on patient's age to complete this topic Hepatitis A Vaccines Aged Out No long er eligible based on patient's age to complete this topic Hepatitis B Vaccines Aged Out No long er eligible based on patient's age to complete this topic IPV Vaccines Aged Out No longer eligi ble based on patient's age to complete this topic MMR Vaccines Aged Out No longer eligi ble based on patient's age to complete this topic Meningococcal ACWY Vaccine Aged Out N o longer eligible based on patient's age to complete this topic RSV Immunization Patients Under 20 months Aged Out No longer eligible based on patient's age to complete this topic Varicella Vaccines Aged Out No longer eligible based on patient's age to complete this topic Procedures Procedure Name Priority Date/Time Associated Diagnosis Comments ANNUAL BMP BLOOD TEST Routine 05/02/2024 URINE ALBUMIN CREATININE RATIO Routine 04/14/2024 HEMOGLOBIN A1C Routine 04/14/2024 LIPID PANEL Routine 04/14/2024 DIABETES FOOT EXAM Routine 04/14/2024 HEPATITIS C SCREENING Routine 02/17/2013 from Last 3 Months or Most Recently Relevant to Health Maintenance Results * Annual BMP Blood Test (05/02/2024) Pathologist [facility] Annual BMP Blood Test Abstracted Historical Provider [facility] * Urine Albumin Creatinine Ratio (04/14/2024) [facility] Urine Albumin Creatinine Ratio Abstracted Historical Provider [facility] * Diabetes Foot Exam (04/14/2024) [facility] Diabetes: Annual Foot Exam Abstracted [facility] Provider [facility] Hemoglobin A1c (04/14/2024) [facility] Hemoglobin A1C 6.0 6.5 % Blood Venous blood specimen / Unknown Historical Provider LAB BLOOD ORDERAB LES * (ABNORMAL) Lipid panel (04/14/2024) [facility] LDL/HDL Ratio 5(A) 0 - 4 Triglycerides 112 0 - 150 mg/dL Cholesterol 195 0 - 200 mg/dL HDL 37(A) 40 mg/dL LDL Cholesterol 136(A) 0 - 100 mg/dL Blood Venous blood specimen / Unknown Historical Provider LAB BLOOD ORDERAB LES * Hepatitis C Screening (02/17/2013) Pathologist [facility] Hepatitis C Screening Abstracted Historical Provider MD LUANA Branham from Last 3 Months or Most Recently Relevant to Health Maintenance Care Teams Handle Sander Operator Relationship Specialty Start Date End Date Bong Rodriguez MD [address] [facility] [place] Rashid [id number] PCP - General 04/11/23
[2024-12-02 08:14] VITALS: BP 146/62; PULSE 66; O2SAT 95; BMI 23.8
[2024-12-02 08:34] VITALS: BP 126/68
== END 2024-12-02 14:06 | disposition home or self-care (01) ==
PROVIDERS: PCP Internal Medicine; Visit Provider Internal Medicine
DX: Z00.00 Encounter for general adult medical examination without abnormal findings (principal); R49.0 Dysphonia; R33.9 Retention of urine, unspecified

== ENCOUNTER 2024-12-02 09:03 | Outpatient (REF) | payer MEDICARE, SELFPAY ==
--- OUTSIDE RECORDS SUMMARY | 2024-12-02 09:27 | XMS_ITS | Clinical Summary ---
Author Organization 175 [facility] Address [address] [place] [address] Phone Care Team Providers Care Cupola Patcher Helper Name Role Phone Bong Rodriguez MD Primary [...] Sciatica 10/10/2011 Overview (08/22/2024): MRI done at [facility] October 07, 2011 moderate size L4-5 disc extrusion compressing the left L5 nerve root There are minor degenerative changes to the spine Pain in joint, lower leg 12/27/2006 Rosacea 12/27/2006 Encounters Date Type Department Care Team Description 10/08/2024 8:45 AM EST Office Visit Bariatric Surgery [facility] [address] [facility] [address] [place] [address] Natalie Peacock MD Non-recurrent bilateral inguinal hernia without obstruction or gangrene (Primary Dx); Type 2 diabetes mellitus without complication, without long-term current use of insulin ([facility]) from Last 3 [...] History Surgery Date Site/Laterality Comments VASECTOMY PROCEDURE: [place] VASECTOMY UNI/BI SPX W/POSTOP SEMEN EXAMS COLONOSCOPY PROCEDURE: HISTORICAL COLONOSCOPY; COMMENT: 2007 per patient TURP / TRANSURETHRAL INCISIO N / DRAINAGE PROSTATE 06/10/2024 PROCEDURE: HISTORICAL TURP; COMMENT: Enlarged prostate Medical History Medical History Date Comments Pain in joint, lower leg 12/27/2006 DX:Pain in joint, lower leg Rosacea 12/27/2006 DX:Rosacea Type 2 diabetes mellitus wit hout complication, without long-term current use of insulin ([facility]) 12/21/2023 DX:Type 2 [...] AM EDT Office Visit Bariatric Surgery - [place] 175 [facility] [address] [place] [address] Natalie Peacock MD 175 [facility] [address] [place] [address] Health Maintenance Due Date Last [...] * Annual BMP Blood Test (05/02/2024) Pathologist [facility] Annual BMP Blood Test Abstracted Historical Provider [facility] E * Urine Albumin Creatinine Ratio (04/14/2024) [facility] Urine Albumin Creatinine Ratio Abstracted Historical Provider [facility] * Diabetes Foot Exam (04/14/2024) [facility] Diabetes: Annual Foot Exam Abstracted [facility] Provider [facility] Hemoglobin A1c (04/14/2024) [facility] Hemoglobin A1C 6.0 6.5 % Blood Venous blood specimen / Unknown Historical Provider LAB BLOOD ORDERAB LES * (ABNORMAL) Lipid panel (04/14/2024) [facility] LDL/HDL Ratio 5(A) 0 - 4 Triglycerides 112 0 - 150 mg/dL Cholesterol 195 0 - 200 mg/dL HDL 37(A) 40 mg/dL LDL Cholesterol 136(A) 0 - 100 mg/dL Blood Venous blood specimen / Unknown Historical Provider LAB BLOOD ORDERAB LES * Hepatitis C Screening (02/17/2013) Pathologist [facility] Hepatitis C Screening Abstracted Historical Provider MD LUANA Branham from Last 3 Months or Most Recently Relevant to Health Maintenance Care Teams Cupola Patcher Helper Relationship Specialty Start Date End Date Bong Rodriguez MD [address] [facility] [place] [id number] PCP - General 04/11/23
[2024-12-02 11:17] LABS: MANUAL DIFF FLAG NO
[2024-12-02 11:22] LABS: Basophils Percent Auto 0.3 % (0-2); Eosinophils Absolute Auto 0.1 X10*3/uL (0.0-0.4); Eosinophils Percent Auto 1.5 % (0-4); Hematocrit 39.7 % (42.0-52.0); Hemoglobin 13.2 g/dl (14.0-18.0); Imm Gran Abs Auto 0.01 X10*3/uL (0.00-0.03); Imm Gran Pct Auto 0.2 % (0.0-0.4); Lymphocytes Percent Auto 32.4 % (20-40); Mean Corpuscular HGB Conc 33.2 g/dl (31.0-36.0); Mean Corpuscular Hemoglobin 30.7 pg (27.0-33.0); Mean Corpuscular Volume 92.3 fL (80.0-98.0); Mean Platelet Volume 11.1 fL (9.4-12.4); Monocytes Absolute Auto 0.5 X10*3/uL (0.1-1.2); Monocytes Percent Auto 7.8 % (2-11); Neutrophils Absolute Auto 3.6 x10*3/uL (2.0-8.3); Neutrophils Percent Auto 57.8 % (45-73); Platelet Count 164 X10*3/uL (160-400); Red Cell Distribution Width 13.3 % (11.0-16.0); White Blood Count 6.2 X10*3/uL (4.8-10.8)
[2024-12-02 11:41] LABS: Estimated Average Glucose 126 mg/dL; Hemoglobin A1C 144.0339 umol/L; Total Hemoglobin (HGBA1C) 3467.2862 umol/L
[2024-12-02 12:06] LABS: Alanine Aminotransferase 9 U/L (0-40); Albumin Level 4.4 g/dL (3.5-5.0); Alkaline Phosphatase 87 U/L (39-117); Anion Gap 7 (12-20); Aspartate Amino Transferase 31 U/L (5-37); Bilirubin Total 0.8 mg/dL (0.0-1.0); Blood Urea Nitrogen 19 mg/dL (9-16); Carbon Dioxide 29 mmol/L (22-29); Chloride 107 mmol/L (96-108); Cholesterol 191 mg/dL (<200); Estimated Glomerular Filt Rate > 60; Glucose Random 119 mg/dL (60-115); HDL Cholesterol 34 mg/dL (>40); LDL Cholesterol Calculated 131 mg/dL (<100); Potassium 4.3 mmol/L (3.3-5.1); Sodium 139 mmol/L (135-145); Triglycerides 134 mg/dL (<150)
[2024-12-02 13:13] LABS: Folate 11.3 ng/mL (> or = 4.0); Vitamin B12 703 pg/mL (200-900)
== END 2024-12-02 09:04 | disposition home or self-care (01) ==
LOC: HO.WFDLDS 09:03
PROVIDERS: Visit Provider Internal Medicine
DX: Z00.00 Encounter for general adult medical examination without abnormal findings (principal); R49.0 Dysphonia; R33.9 Retention of urine, unspecified; D53.9 Nutritional anemia, unspecified; Z13.1 Encounter for screening for diabetes mellitus
CPT/HCPCS: 36415; 80053; 80061; 82607; 82746; 83036; 85025; 99212

== ENCOUNTER 2025-02-09 09:44 | Outpatient (REF) | payer MEDICARE, SELFPAY ==
--- OUTSIDE RECORDS SUMMARY | 2025-02-09 11:15 | XMS_ITS | Encounter Summary ---
Author Organization [facility] Address [address] [place] [address] Care Team Providers Care Continuing Education Instructor Name Role Phone Bong Rodriguez MD Primary Care Provider Encounter Details Date Type Department Care Team (Late st Contact Info) Description 01/02/2025 Lab Requisition [facility] - Main Lab [address] [facility] [place] [address] Jose Manuel Tate PA [address] [place] [id number] Urinary tract infection, site not specified; Frequency of micturition Social History Tobacco Use Types Packs/Day Years Used Date Smoking Tobacco: Former Smokeless Tobacco: Never Alcohol Use Standard Drinks/Week Comments Yes 0 (1 standard drink = 0.6 oz pur e alcohol) Sex and Gender Information Value Date Recorded Sex Assigned at Not on file Legal Sex Male 10:16 AM EST Gender Identity Not on file Sexual Orientation Not on file documented as of this encounter Plan of Treatment Upcoming Encounters Date Type Department Care Team (Late st Contact Info) Description 04/13/2025 8:30 AM EDT Office Visit Bariatric Surgery - [place] 175 [facility] [address] [place] [address] Natalie Peacock MD [address] [address] documented as of this encounter Procedures Procedure Name Priority Date/Time Associated Diagnosis Comments CULTURE URINE Routine 01/02/2025 12:00 AM EST Urinary tract infection, site not specified Frequency of micturition documented in this encounter Results * Culture urine (01/02/2025 12:00 AM EST) Culture, Urine No growth 01/03/2025 9:53 AM EST [facility] Urine Urine specimen obtained by clean catch procedure / Unknown 01/02/2025 01/02/2025 1:00 PM EST [facility] Rebecca JOSEPH LAB MICROBIOLOGY - GENERAL PAUL VASQUEZ Final Result [facility] [address] [place] [address], documented in this encounter Visit Diagnoses Diagnosis Urinary tract infection, site not specified Frequency of micturition Urinary frequency documented in this encounter Care Teams Continuing Education Instructor Relationship Specialty Start Date End Date Bong Rodriguez MD [address] [place] [address] PCP - General 04/11/23 documented as of this encounter
--- OUTSIDE RECORDS SUMMARY | 2025-02-09 11:15 | XMS_ITS | Clinical Summary ---
Author Organization 175 [facility] Address [address] [place] [address] Phone Care Team Providers Care Surveyor Helper Rod Name Role Phone Bong Rodriguez MD Primary Care Provider Allergies No known active allergies Medications cyanocobalamin, vitamin B-12, 5,000 mcg tablet,disintegr ating Place 1 Tablet under the tongue daily. [...] Sciatica 10/10/2011 Overview (08/22/2024): MRI done at [facility] October 07, 2011 moderate size L4-5 disc extrusion compressing the left L5 nerve root There are minor degenerative changes to the spine Pain in joint, lower leg 12/27/2006 Rosacea 12/27/2006 Encounters Date Type Department Care Team Description 01/02/2025 Lab Requisition [facility] - Main Lab [address] [facility] [place] [address] Jose Manuel Tate PA Urinary tract infection, site not specified; Frequency of micturition from Last 3 Months Immunizations Name Administration [...] History Surgery Date Site/Laterality Comments VASECTOMY PROCEDURE: [place] VASECTOMY UNI/BI SPX W/POSTOP SEMEN EXAMS COLONOSCOPY PROCEDURE: HISTORICAL COLONOSCOPY; COMMENT: 2007 per patient TURP / TRANSURETHRAL INCISIO N / DRAINAGE PROSTATE 06/10/2024 PROCEDURE: HISTORICAL TURP; COMMENT: Enlarged prostate Medical History Medical History Date Comments Pain in joint, lower leg 12/27/2006 DX:Pain in joint, lower leg Rosacea 12/27/2006 DX:Rosacea Type 2 diabetes mellitus wit hout complication, without long-term current use of insulin 12/21/2023 DX:Type 2 diabetes mellitus without complication, without long-term current use of insulin (HCC) Family History Medical History Relation Name Comments [...] on file Sexual Orientation Not on file Obstetrics History Last Filed [...] AM EDT Office Visit Bariatric Surgery - [place] [address] [address] Natalie Peacock MD 175 [facility] [address] [place] [address] Health Maintenance Due Date Last Done Comments Diabetes: Annual Retina Eye Exam 02/27/1960 Depression Screening 10/14/2022 Falls Risk Assessment 10/14/2022 Medicare Annual Wellness Visit 10/14/2022 Social Influencers of Health Screening 10/14/2022 RSV Immunization Adult Patients (1 - 1-dose 75+ series) 02/27/2023 DTaP,Tdap,and Td Vaccines (5 - Td or Tdap) 05/01/2024 05/01/2014, 06/15/2008, 02/03/2003, Additional history exists COVID-19 Vaccine ( season) 2024 09/27/2022, 08/23/2021, 02/08/2021, Additional history exists Diabetes: Blood Sugar Control Test (HGBA1C) 10/14/2024 04/14/2024, 04/14/2024 Diabetes: Annual Urine Albumin-Creatinine Ratio (uACR) 04/14/2025 04/14/2024 Diabetes: Annual Foot Exam 04/14/2025 04/14/2024 Diabetes: Annual GFR (Glomerular Filtration Rate) 05/02/2025 05/02/2024, 05/02/2024, 04/14/2024 Influenza Vaccine (Season Ended) 2025 08/27/2023, 09/10/2022, 09/19/2021, Additional history exists Cholesterol Screening (Lipid Panel) 04/14/2029 04/14/2024, 04/14/2024 Hepatitis C Screening Completed 02/17/2013 Pneumococcal Vaccine: 50+ Years Completed 08/24/2016, 11/12/2013 Zoster Vaccines Completed [...] patient's age to complete this topic Meningococcal B Vacine Aged Out No lo nger eligible based on patient's age to complete [...] infection, site not specified Frequency of micturition ANNUAL BMP BLOOD TEST Routine 05/02/2024 URINE ALBUMIN CREATININE RATIO Routine 04/14/2024 HEMOGLOBIN A1C Routine 04/14/2024 LIPID PANEL Routine 04/14/2024 DIABETES FOOT EXAM Routine 04/14/2024 HEPATITIS C SCREENING Routine 02/17/2013 from Last 3 Months or Most Recently Relevant to Health Maintenance Results * Culture urine (01/02/2025 12:00 AM EST) Pathologist [facility] Culture, Urine No growth 01/03/2025 9:53 AM EST [facility] Urine Urine specimen obtained by clean catch procedure / Unknown 01/02/2025 01/02/2025 1:00 PM EST Jose Manuel RUIZ LAB MICROBIOLOGY - GENERAL PAUL VASQUEZ Final Result [facility] [address] [place] [address], * Annual BMP Blood Test (05/02/2024) Annual BMP Blood Test Abstracted Historical Provider HEALTH MAINTENANCE Final Result * Urine Albumin Creatinine Ratio (04/14/2024) Urine Albumin Creatinine Ratio Abstracted Historical Provider HEALTH MAINTENANCE Final Result * Diabetes Foot Exam (04/14/2024) [facility] Diabetes: Annual Foot Exam Abstracted [facility] Provider HEALTH MAINTENANCE Final Result * Hemoglobin A1c (04/14/2024) [facility] Hemoglobin A1C 6.0 <=6.5 % Blood Venous blood specimen / Unknown Result [facility] Provider LAB BLOOD ORDERABLES Jayne l Result * (ABNORMAL) Lipid panel (04/14/2024) [facility] LDL/HDL Ratio 5(A) 0 - 4 Triglycerides 112 0 - 150 mg/dL Cholesterol 195 0 - 200 mg/dL HDL 37(A) >=40 mg/dL LDL Cholesterol 136(A) 0 - 100 mg/dL Blood Venous blood specimen / Unknown Result [facility] Provider LAB BLOOD ORDERABLES Jayne l Result * Hepatitis C Screening (02/17/2013) [facility] Hepatitis C Screening Abstracted [facility] Provider HEALTH MAINTENANCE Final Result from Last 3 Months or Most Recently Relevant [place] [id number] [employer] MEDICARE Care Teams Surveyor Helper Rod Relationship Specialty Start Date End Date Bong Rodriguez MD [address] [facility] [address] PCP - General 04/11/23
[2025-02-09 12:53] LABS: Anion Gap 12 (12-20); Blood Urea Nitrogen 18 mg/dL (9-16); Calcium 9.6 mg/dL (8.4-10.2); Carbon Dioxide 26 mmol/L (22-29); Chloride 107 mmol/L (96-108); Estimated Glomerular Filt Rate 58; Glucose Random 127 mg/dL (60-115); Potassium 4.7 mmol/L (3.3-5.1); Sodium 140 mmol/L (135-145)
== END 2025-02-09 09:45 | disposition home or self-care (01) ==
LOC: HO.LAB 09:44
PROVIDERS: PCP Internal Medicine; Visit Provider Internal Medicine Hypertension Specialist
DX: N17.9 Acute kidney failure, unspecified (principal); R33.9 Retention of urine, unspecified
CPT/HCPCS: 36415; 80048

== ENCOUNTER 2025-02-18 10:31 | Outpatient (AMB) | payer MEDICARE, SELFPAY ==
[2025-02-18 10:51] VITALS: BP 148/66; PULSE 61; O2SAT 99; BMI 24.0
--- NOTE | 2025-02-18 10:51 | HO.NEPHOV_ITS ---
Vital Signs 02/18/25 10:51 02/18/25 11:00 Height 5 ft 10 in Weight 167 lb BMI 24.0 BP 148/66 H 130/70 Blood Pressure Location Lt brachial Lt brachial Position Sitting Sitting Pulse 61 Pulse Source Pulse Oximeter Pulse Oximetry (%) 99 Oxygen Delivery Method Room Air Intake Visit Reasons: MYRON/ LVM Allergies No Known Allergies Allergy (Verified 02/18/25 10:53) HPI Comments Details: . Yaquelin is a pleasant 74-year-old man who has been enjoying reasonably good health. He has not had any significant prescription medications other than minocycline once a week for almost 10 years. Recently vitamin B12 has been added. He has a routine blood work done and renal function has been relatively stable all along. In April of 2024 serum creatinine gradually increased from a baseline of 1.0 up to 1.4 and subsequently to 1.94 as of May 02. Urine studies were unremarkable. He has not been taking any new medications including NSAIDs. Denies any difficulty urination. No dysuria urgency increased frequency. No hematuria. No joint pain fever rash. No weight loss. No diarrhea constipation. No hemoptysis. No history of smoking. He is planned to go to [place] in the next few days until October 2024. 07/01/2024. 74-year-old man with acute kidney injury due to obstructive uropathy he had bilateral hydronephrosis. Seen by Urology and underwent urologic procedure He has a Pool catheter in place he has difficulty emptying his bladder and waiting for urodynamic studies 08/28/24 s/p proceedure;Pool is out 02/18/25: Doing well.No new issues [facility] Medical History No pertinent past medical history Surgical History S/P TURP History of prostate surgery (~06/2024) No pertinent past surgical history Family History Other Lung cancer Social History Household Members: Spouse, Family and Children Housing: House 75 years or older and lives alone: No Alcohol intake: current Alcohol intake frequency: holidays/special occasions only Alcohol type: beer Comment: like once per year Patient Tobacco Use Status: Never used Tobacco e-Cigarette/Vaping Use: Never Used service: No Current occupational status: retired Current occupational exposures/hazards: No Cognitive needs: No Hearing needs: No Vision needs: No Physical Exam Vital Signs: Last Vital Signs Pulse 61 02/18/25 10:51 BP 130/70 02/18/25 11:00 Pulse Ox 99 02/18/25 10:51 Oxygen Delivery Method Room Air 02/18/25 10:51 BMI result Body Mass Index 24.0 Results Reviewed Nephrology Results: Hgb 13.2 g/dl (14.0-18.0) L 12/02/24 WBC 6.2 X10*3/uL (4.8-10.8) 12/02/24 Plt Count 164 X10*3/uL (160-400) 12/02/24 Sodium 140 mmol/L (135-145) 02/09/25 Potassium 4.7 mmol/L (3.3-5.1) 02/09/25 Chloride 107 mmol/L (96-108) 02/09/25 Carbon Dioxide 26 mmol/L (22-29) 02/09/25 BUN 18 mg/dL (9-16) H 02/09/25 Creatinine 1.22 mg/dL (0.5-1.4) 02/09/25 Calcium 9.6 mg/dL (8.4-10.2) 02/09/25 Urine Protein Negative mg/dL (Neg-Trace) 05/29/24 Renal US 05/29/24 Assessment & Plan Assessment & Plan (1) MYRON (acute kidney injury): Code(s): N17.9 - Acute kidney failure, unspecified Category: Medical Plan 74-year-old man with acute kidney injury due to obstructive uropathy. Ultrasonogram revealed bilateral hydronephrosis. Status post urologic procedure and currently has a Pool catheter in place. Recent creatinine was 1.2 renal function is improving. encouraged him to stay on a low-sodium diet increase fluid intake. All the serological testing have been negative thus far. His blood pressure is acceptable. No changes were made to his medications. Coding Level of Care Code Est Pt Level 4 (34931) Diagnoses MYRON (acute kidney injury) N17.9
[2025-02-18 11:00] VITALS: BP 130/70
--- OUTSIDE RECORDS SUMMARY | 2025-02-18 12:23 | XMS_ITS | Clinical Summary ---
Author Organization [address] [facility] Address [address] [place] [address] Phone Care Team Providers Care Lithograph Press Operator Tinware Name Role Phone Bong Rodriguez MD Primary Care Provider Allergies No known active allergies Medications cyanocobalamin, vitamin B-12, 5,000 mcg tablet,disintegr ating Place 1 Tablet under the tongue daily. 05/05/2024 Active Active Problems Problem Noted Date Diagnosed Date Type 2 diabetes mellitus wit hout complication, without long-term current use of insulin ([facility] V24, [facility] V28) 12/21/2023 Elevated blood pressure reading 12/20/2023 Non-recurrent unilateral ing uinal hernia without obstruction or gangrene 06/19/2023 Pure hypercholesterolemia 09/01/2016 Diverticulitis of colon without hemorrhage 07/08 Overview (08/22/2024): Colonopcopy 03/2006 Dr. Reyez Displacement of lumbar inter vertebral disc without myelopathy 10/16/2011 Radiculitis, lumbosacral 10/16/2011 Sciatica 10/10/2011 Overview (08/22/2024): MRI done at [facility] October 07, 2011 moderate size L4-5 disc extrusion compressing the left L5 nerve root There are minor degenerative changes to the spine Pain in joint, lower leg 12/27/2006 Rosacea 12/27/2006 Encounters Date Type Department Care Team Description 01/02/2025 Lab Requisition [facility] - Main Lab [address] [facility] [place] [address] Jose Manuel Tate PA Urinary [...] History Surgery Date Site/Laterality Comments VASECTOMY PROCEDURE: [place] VASECTOMY UNI/BI SPX W/POSTOP SEMEN EXAMS COLONOSCOPY PROCEDURE: HISTORICAL COLONOSCOPY; COMMENT: 2007 per patient TURP / TRANSURETHRAL INCISIO N / DRAINAGE PROSTATE 06/10/2024 PROCEDURE: HISTORICAL TURP; COMMENT: Enlarged prostate Medical History Medical History Date Comments Pain in joint, lower leg 12/27/2006 DX:Pain in joint, lower leg Rosacea 12/27/2006 DX:Rosacea Type 2 diabetes mellitus wit hout complication, without long-term current use of insulin ([facility] V24, [facility] V28) 12/21/2023 DX:Type 2 diabetes mellitus without complication, without long-term current use of insulin ([facility]) Family History Medical History Relation Name Comments [...] AM EDT Office Visit Bariatric Surgery - [place] [address] [facility] [address] [place] [address] Natalie Peacock MD [address] [facility] [address] [place] [address] Health Maintenance Due Date Last [...] age to complete this topic Meningococcal B Vaccine Aged Out No l onger eligible based on patient's age to complete [...] * Culture urine (01/02/2025 12:00 AM EST) [facility] Culture, Urine No growth 01/03/2025 9:53 AM EST [facility] Urine Urine specimen obtained by clean catch procedure / Unknown 01/02/2025 01/02/2025 1:00 PM EST Jose Manuel RUIZ LAB MICROBIOLOGY - GENERAL ORDE RABLES Final Result [facility] [address] [place] [address], * Annual BMP Blood Test (05/02/2024) Pathologist [facility] Annual BMP Blood Test Abstracted [facility] Provider MD HEALTH MAINTENANCE Final Result * Urine Albumin Creatinine Ratio (04/14/2024) Pathologist [facility] Urine Albumin Creatinine Ratio Abstracted Result [facility] Provider HEALTH MAINTENANCE Final Result * Diabetes Foot Exam (04/14/2024) Pathologist [facility] Diabetes: Annual Foot Exam Abstracted Result [facility] Provider HEALTH MAINTENANCE Final Result * Hemoglobin A1c (04/14/2024) [facility] Hemoglobin A1C 6.0 <=6.5 % Blood Venous blood specimen / Unknown Result [facility] Provider LAB BLOOD ORDERABLES Jayne l Result * (ABNORMAL) Lipid panel (04/14/2024) [facility] LDL/HDL Ratio 5(A) 0 - 4 Triglycerides 112 0 - 150 mg/dL Cholesterol 195 0 - 200 mg/dL HDL 37(A) >=40 mg/dL LDL Cholesterol 136(A) 0 - 100 mg/dL Blood Venous blood specimen / Unknown Result [facility] Provider LAB BLOOD ORDERABLES Jayne l Result * Hepatitis C Screening (02/17/2013) [facility] Hepatitis C Screening Abstracted Result [facility] Provider HEALTH MAINTENANCE Final Result from Last 3 Months or Most Recently Relevant to Health [place] [id number] [employer] MED[employer]ARE Care Teams Lithograph Press Operator Tinware Relationship Specialty Start Date End Date Bong Rodriguez MD [address] [place] [address] PCP - General 04/11/23
--- OUTSIDE RECORDS SUMMARY | 2025-02-18 12:23 | XMS_ITS | Encounter Summary ---
Author Organization [facility] Address [address] [place] [address] Care Team Providers Care Mount Loader Name Role Phone Bong Rodriguez MD Primary Care Provider Encounter Details Date Type Department Care Team (Late st Contact Info) Description 01/02/2025 Lab Requisition [facility] - Main Lab [address] [facility] [place] [address] Jose Manuel Tate PA [address] [place] [id number] Urinary tract infection, site not specified; Frequency [...] AM EDT Office Visit Bariatric Surgery - [place] 175 [facility] [address] [place] [phone] Natalie Peacock MD [address] [address] documented as of this encounter Procedures Procedure Name Priority Date/Time Associated Diagnosis Comments CULTURE URINE Routine 01/02/2025 12:00 AM EST Urinary tract infection, site not specified Frequency of micturition documented in this encounter Results * Culture urine (01/02/2025 12:00 AM EST) Culture, Urine No growth 01/03/2025 9:53 AM EST [facility] Urine Urine specimen obtained by clean catch procedure / Unknown 01/02/2025 01/02/2025 1:00 PM EST [facility] Rebecca JOSEPH LAB MICROBIOLOGY - GENERAL PAUL VASQUEZ Final Result [facility] [address] [place] [address], documented in this encounter Visit Diagnoses Diagnosis Urinary tract infection, site not specified Frequency of micturition Urinary frequency documented in this encounter Care Teams Mount Loader Relationship Specialty Start Date End Date Bong Rodriguez MD [address] [place] [address] PCP - General 04/11/23 documented as of this encounter
== END 2025-02-18 11:04 | disposition home or self-care (01) ==
LOC: HO.HKAS 10:31
PROVIDERS: PCP Internal Medicine; Visit Provider Internal Medicine Hypertension Specialist
DX: N17.9 Acute kidney failure, unspecified (principal)
CPT/HCPCS: 99214

== ENCOUNTER → 2025-02-18 10:31 | Outpatient (BNVA) | payer MEDICARE, SELFPAY | PROVIDERS: PCP Internal Medicine; Visit Provider Internal Medicine Hypertension Specialist | DX: N17.9 Acute kidney failure, unspecified (principal) | CPT/HCPCS: 99212 ==